=== PATIENT | female | born 1980 | race Caucasian/White ===

== ENCOUNTER 2017-09-25 13:19 | Emergency (ER) | payer SELFPAY ==
[~2017-09-25] VITALS: Ht 152.4 cm; Wt 52.2 kg
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
--- NOTE | 2017-09-25 13:50 | NUR ---
MIGUEL MIRANDA AT BEDSIDE FOR EVAL.
--- NOTE | 2017-09-25 14:18 | NUR ---
RADHA MARTINEZ ([facility] # [id number]) AT .
[2017-09-25 14:47] LABS: HEMATOCRIT 28 % (33-45); HEMOGLOBIN 8.5 g/dL (11.5-14.8); MEAN CORPUSCULAR HEMOGLOBIN 26 PG (26.0-33.0); MEAN CORPUSCULAR HGB CONC 30 g/dl (31.0-36.0); MEAN CORPUSCULAR VOLUME 86 fL (82-100); PLATELET COUNT (AUTO) 107 /CMM (150-450); RDW COEFFICIENT OF VARIATION 21.3 (11.5-15.0); RED BLOOD CELL COUNT(AUTO) 3.27 MIL/uL (4.0-5.2); WHITE BLOOD COUNT (AUTO) 7.5 K/uL (4.3-11.0)
[2017-09-25 14:53] LABS: BASOPHILS % (AUTO) 1.1 % (0.0-2.0); EOSINOPHILS % (AUTO) 1.1 % (0.0-6.0); LYMPHOCYTES % (AUTO) 10.5 % (20.0-44.0); NEUTROPHILS % (AUTO) 81.3 % (43.0-81.0)
[2017-09-25 14:54] LABS: BASOPHILS # (AUTO) 0.1 /CMM (0.0-0.2); LYMPHOCYTES # (AUTO) 0.8 /CMM (0.8-4.8); MONOCYTES # (AUTO) 0.4 /CMM (0.1-1.30)
[2017-09-25 15:00] LABS: CALCIUM, SERUM 8.2 mg/dL (8.5-10.1); CREATININE 0.4 mg/dL (0.6-1.3); POTASSIUM 2.9 mmol/L (3.5-5.1)
[2017-09-25 15:07] LABS: TOTAL PROTEIN, SERUM 8.6 g/dL (6.4-8.2)
--- NOTE | 2017-09-25 16:10 | NUR ---
C-spine cleared by ER . Collar removed. Patient able to move all extremities before and after COLLAR removal.
--- NOTE | 2017-09-25 17:25 | NUR ---
Report given to Vivek DAVILA for [facility].
[2017-09-25] MEDS ORDERED: LIDOCAINE 1%-EPI 1:100,000 20 ML VIAL ONE (17:48)
--- NOTE | 2017-09-25 18:30 | NUR ---
Patient is resting comfortably in bed with eyes closed. Easily aroused. VSS
[2017-09-25] MEDS ORDERED: POTASSIUM CHLORIDE 20 MEQ TAB.PRT.SR PO ONE (18:59)
[2017-09-25] MEDS: POTASSIUM CHLORIDE 20 MEQ TAB.PRT.SR PO ONE (19:03)
--- NOTE | 2017-09-25 19:08 | NUR ---
Report given to Vivek DAVILA for [facility].
--- NOTE | 2017-09-25 19:34 | NUR ---
PT RESTING IN BED COMFORTABLY. NAD. VSS. WILL CONTINUE TO MONITOR. SAFETY MEASURES IN PLACE. CALL LIGHT WITHIN REACH.
[2017-09-25 21:05] VITALS: BP 109/57
--- NOTE | 2017-09-25 21:14 | NUR ---
Patient discharged to home in stable condition. Written and verbal after care instructions given. Patient verbalizes understanding of instruction. PT AMBULATED WITH STEADY GAIT. NAD. MELENDEZ
== END 2017-09-25 21:06 | disposition home or self-care (01) ==
LOC: ER 13:22 → EDBD 13:22 → ER 21:06
DX: S01.81XA Laceration without foreign body of other part of head, initial encounter (principal); F10.129 Alcohol abuse with intoxication, unspecified; Y90.9 Presence of alcohol in blood, level not specified; Z59.0 Homelessness; Y04.8XXA Assault by other bodily force, initial encounter; Y93.89 Activity, other specified; Y92.89 Other specified places as the place of occurrence of the external cause; Y99.8 Other external cause status
CPT/HCPCS: 12011; 36415; 70450; 72125; 80053; 80305; 84703; 85025; 99285; A4606; A6402 ×2; G0480; J3490; Z7610

== ENCOUNTER 2017-11-20 12:15 | Emergency (ER) | payer SELFPAY ==
[~2017-11-20] VITALS: Ht 149.9 cm; Wt 41.7 kg
[2017-11-20 12:40] LABS: BASOPHILS % (AUTO) 0.7 % (0.0-2.0); HEMATOCRIT 31 % (33-45); HEMOGLOBIN 10.1 g/dL (11.5-14.8); LYMPHOCYTES # (AUTO) 1.4 /CMM (0.8-4.8); LYMPHOCYTES % (AUTO) 19.7 % (20.0-44.0); MEAN CORPUSCULAR HGB CONC 33 g/dl (31.0-36.0); MEAN CORPUSCULAR VOLUME 97 fL (82-100); MONOCYTES # (AUTO) 0.5 /CMM (0.1-1.30); MONOCYTES % (AUTO) 6.9 % (2.0-12.0); NEUTROPHILS # (AUTO) 5.1 /CMM (1.8-8.9); NEUTROPHILS % (AUTO) 71.7 % (43.0-81.0); PLATELET COUNT (AUTO) 64 /CMM (150-450); RDW COEFFICIENT OF VARIATION 16.1 (11.5-15.0); RED BLOOD CELL COUNT(AUTO) 3.16 MIL/uL (4.0-5.2); WHITE BLOOD COUNT (AUTO) 7.1 K/uL (4.3-11.0)
[2017-11-20 12:50] LABS: CALCIUM, SERUM 7.9 mg/dL (8.5-10.1); CREATININE 0.6 mg/dL (0.6-1.3); POTASSIUM 3.1 mmol/L (3.5-5.1)
[2017-11-20 12:55] LABS: INR 1.16 (0.85-1.15)
[2017-11-20] MEDS ORDERED: IV NS 0.9% 1,000 ML BAG IV ONE (13:00)
[2017-11-20 13:07] LABS: ALCOHOL, BLOOD 403 mg/dL (0-0)
--- NOTE | 2017-11-20 13:07 | NUR ---
[address] c/o vaginal bleeding. + ETOH, SLEEPY EASILY AWAKEN WITH VERBAL STIMULI. PT ALSO C/O ABD PAIN. DENIES DIZZINESS, N/V, SOB, CP @ THIS TIME. PT SEEN & EVAL'D BY DR. BALDERRAMA & WILL CONT TO MONITOR.
[2017-11-20 13:31] LABS: ALBUMIN 2.9 g/dL (3.4-5.0); BILIRUBIN,DIRECT 0.5 mg/dL (0.0-0.2); TOTAL PROTEIN, SERUM 8.5 g/dL (6.4-8.2)
[2017-11-20 13:38] LABS: BAND % (MANUAL) 1 % (0.0-5.0); EOSINOPHILS % (MANUAL) 1 % (0-4); LYMPHOCYTES % (MANUAL) 17 % (16-48); MONOCYTES % (MANUAL) 5 % (0-11.0); NEUTROPHILS % (MANUAL) 76 (42-76)
--- NOTE | 2017-11-20 15:45 | NUR ---
Patient is resting comfortably in bed with eyes closed. Easily aroused. VSS
[2017-11-20 17:14] LABS: APPEARANCE,URINE Slightly Cloudy (CLEAR); BILIRUBIN,URINE Negative (NEGATIVE); BLOOD, URINE Large Ery/uL (NEGATIVE); COLOR,URINE Orange (YELLOW); KETONES,URINE Negative (NEGATIVE); LEUKOCYTE ESTERASE ,URINE Negative (NEGATIVE); NITRITE, URINE Negative (NEGATIVE); PROTEIN,URINE Trace mg/dl (NEGATIVE); UGLUCOSE Negative (NEGATIVE)
[2017-11-20 17:42] LABS: BACTERIA,URINE Few /HPF (None Seen); RBC,URINE 21-50 /HPF (0-2); SQUAMOUS EPITHELIAL CELL,UR Few /HPF (None Seen); WBC,URINE 0-2 /HPF (0-3)
--- NOTE | 2017-11-20 17:45 | NUR ---
Patient is resting comfortably in bed with eyes closed. Easily aroused. VSS. NO RESP DISTRESS NOTED @ THIS TIME & WILL CONT TO MONITOR.
--- NOTE | 2017-11-20 20:00 | NUR ---
Patient is resting comfortably in bed with eyes closed. Easily aroused. VSS. NO RESP DISTRESS OR ANY VAG BLEEDING @ THIS MOMENT. WILL CONT TO MONITOR.
--- NOTE | 2017-11-21 04:24 | NUR ---
Patient discharged to home in stable condition. Written and verbal after care instructions given. Patient verbalizes understanding of instruction.IV removed. Catheter intact and site benign. Pressure and 4x4 applied to site. No bleeding noted. NO S/S OF DISTRESS NOTED UPON DISCHARGE. PT AMBULATED WITH STEADY GAIT NOTED
[2017-11-21 04:26] VITALS: BP 118/81
== END 2017-11-21 04:27 | disposition home or self-care (01) ==
LOC: ER 12:16
DX: F10.129 Alcohol abuse with intoxication, unspecified (principal); D64.9 Anemia, unspecified; R74.0 Nonspecific elevation of levels of transaminase and lactic acid dehydrogenase [LDH]; N93.9 Abnormal uterine and vaginal bleeding, unspecified; I51.7 Cardiomegaly; Z59.0 Homelessness; Y90.8 Blood alcohol level of 240 mg/100 ml or more
CPT/HCPCS: 36415 ×2; 70450; 70486; 80048; 80076; 81001; 84702; 85025; 85730; 99285; A4606; G0480 ×2; J7030; Z7610; 81000-TC